=== PATIENT | male | born 1970 | race American Indian/Alaskan Native ===

== ENCOUNTER 2017-05-16 21:22 | Observation (INO) | payer SELFPAY ==
--- NOTE | 2017-05-16 22:02 | ED PDOC ---
Lower Extremity Pain/Injury Time Seen by Provider: 05/16/17 21:32 Chief Complaint (Nursing): Lower Extremity Problem/Injury Chief Complaint (Provider): Left Ankle Pain, Right Knee Pain History Per: Patient History/Exam Limitations: no limitations Onset/Duration Of Symptoms: Days (x 3) Current Symptoms Are (Timing): Still Present Severity: Severe Pain Scale Rating Of: 9 Additional Complaint(s): Britton is a 46 y/o male who presents to the ED complaining of left ankle and right knee pain. Patient states he twisted the left ankle on Tuesday trying to get up from a chair and has been using a cane ever since. Today he started developing right knee pain which he thought was from compensating while walking. He denies injury or trauma to either area. He took aspirin at 8am today. Denies dyspnea, fever, chest pain, rash, SOB, other joint pain, cough, nausea, vomiting, calf tenderness, abdominal pain, or recent prolonged immobility. PMD: None Past Medical History Reviewed: Historical Data, Nursing Documentation, Vital Signs Vital Signs: Last Vital Signs Temp 97.9 F 05/16/17 21:26 Pulse 89 05/16/17 21:26 Resp 18 05/16/17 21:26 BP 150/93 H 05/16/17 21:26 Pulse Ox 97 05/16/17 21:26 - Medical History PMH: Anemia - Surgical History Surgical History: No Surg Hx - Family History Family History: States: Unknown Family Hx - Social History Alcohol: None Drugs: Denies - Home Medications Home Medications: Ambulatory Orders Medication Instructions Recorded Colchicine 0.6 mg PO DAILY #30 tablet 05/18/17 - Allergies Allergies/Adverse Reactions: Allergies Allergy/AdvReac Type Severity Reaction Status Date / Time No Known Allergies Allergy Verified 05/16/17 21:25 Review of Systems ROS Statement: Except As Marked, All Systems Reviewed And Found Negative Constitutional: Negative for: Fever Cardiovascular: Negative for: Chest Pain, Palpitations Respiratory: Negative for: Cough, Shortness of Breath Gastrointestinal: Negative for: Nausea, Vomiting, Abdominal Pain Musculoskeletal: Positive for: Leg Pain (right knee), Foot Pain (left ankle) Physical Exam - Reviewed Nursing Documentation Reviewed: Yes Vital Signs Reviewed: Yes - Physical Exam Appears: Positive for: Well, Non-toxic, No Acute Distress Head Exam: Positive for: ATRAUMATIC, NORMOCEPHALIC Skin: Positive for: Normal Color, Warm, Dry Eye Exam: Positive for: EOMI, PERRL Neck: Positive for: Painless ROM, Supple Cardiovascular/Chest: Positive for: Regular Rate, Rhythm. Negative for: Murmur Respiratory: Positive for: Normal Breath Sounds. Negative for: Decreased Breath Sounds, Accessory Muscle Use, Respiratory Distress Extremity: Positive for: Other (Left Ankle: large effusion, diffuse tenderness, no ROM secondary to pain, sensation intact, no warmth, no erythema or ecchymosis ; Right Knee: moderate effusion, diffuse tenderness, decreased rom secondary to pain, positive warmth, no overlying skin changes, no erythema). Negative for: Pedal Edema, Calf Tenderness Neurologic/Psych: Positive for: Alert, Oriented. Negative for: Motor/Sensory Deficits, Gait (unable to ambulate in ED) - Laboratory Results Result Diagrams: 05/17/17 05:20 05/16/17 22:45 - ECG O2 Sat by Pulse Oximetry: 97 (RA) Pulse Ox Interpretation: Normal Medical Decision Making Medical Decision Making: Time: 21:56 Initial Impression: Left Ankle & Right Knee Injury Initial Plan: --XR Right Knee 3 Views --XR Left Ankle 3 Views --CMP --CBC --Toradol --ESR --Uric acid 2315 KNEE XR: (-) fracture (+) effusion ANKLE XR: (-) fracture (+) effusion Patient advised that official radiology read of XR is still pending and will notify the patient if there is any discrepancy within 24 hours. 00:00 Labs reviewed and discussed with patient. Pain slightly improved, however patient is unable to ambulate in ED secondary to intractable pain and joint effusions. Consult placed to hospitalist. 0115 Case discussed with hospitalist, Dr Marie, who is agreeable to admission to med/ surg for observation due to intractable pain, inability to ambulate. Further care and disposition per Dr Marie. Arrangements made for admission. Scribe Attestation: Documented by Adonis Yang, acting as a scribe for Joyce Sibley PA-C Provider Scribe Attestation: All medical record entries made by the Scribe were at my direction and personally dictated by me. I have reviewed the chart and agree that the record accurately reflects my personal performance of the history, physical exam, medical decision making, and the department course for this patient. I have also personally directed, reviewed, and agree with the discharge instructions and disposition. Disposition - Clinical Impression Clinical Impression: Effusion, left ankle, Effusion of right knee joint, Intractable pain - Patient ED Disposition Is Patient to be Admitted: Yes Comment: Dr Marie, hospitalist Doctor Will See Patient In The: ED Counseled Patient/Family Regarding: Diagnosis - Disposition Disposition Time: 01:15 Condition: FAIR - Pt Status Changed To: Hospital Disposition Of: IP to OP/OBS (Code 44) - POA Present On Arrival: None Results - Lab Results Lab Results: 05/16/17 05/16/17 05/16/17 23:49 23:38 22:45 WBC RBC Hgb Hct MCV MCH MCHC RDW Plt Count MPV Neut % (Auto) Lymph % (Auto) [place] % (Auto) Eos % (Auto) Baso % (Auto) Neut # (Auto) Lymph # (Auto) [place] # (Auto) Eos # (Auto) Baso # (Auto) ESR 44 H Sodium 141 Potassium 3.9 Chloride 99 Carbon Dioxide 27 Anion Gap 19 BUN 9 Creatinine 0.9 Est GFR ( Amer) > 60 Est GFR (Non-Af Amer) > 60 Random Glucose 125 H Uric Acid 8.7 H Calcium 9.2 Total Bilirubin 0.7 AST 31 ALT 35 Alkaline Phosphatase 96 Total Protein 8.0 Albumin 3.9 Globulin 4.0 H Albumin/Globulin Ratio 1.0 05/16/17 22:45 WBC 7.1 RBC 5.82 Hgb 13.2 Hct 41.5 MCV 71.2 L MCH 22.7 L MCHC 31.9 L RDW 14.4 Plt Count 280 MPV 8.1 Neut % (Auto) 75.0 Lymph % (Auto) 11.3 L [place] % (Auto) 9.6 Eos % (Auto) 3.7 Baso % (Auto) 0.4 Neut # (Auto) 5.3 Lymph # (Auto) 0.8 L [place] # (Auto) 0.7 Eos # (Auto) 0.3 Baso # (Auto) 0.0 ESR Sodium Potassium Chloride Carbon Dioxide Anion Gap BUN Creatinine Est GFR ( Amer) Est GFR (Non-Af Amer) Random Glucose Uric Acid Calcium Total Bilirubin AST ALT Alkaline Phosphatase Total Protein Albumin Globulin Albumin/Globulin Ratio
[2017-05-16 22:55] LABS: BASO % 0.4 % (0.0-2.0); EOS # 0.3 K/uL (0.0-0.7); EOS % 3.7 % (0.0-4.0); HEMOGLOBIN 13.2 g/dL (12.0-18.0); LYMPH # 0.8 K/uL (1.0-4.3); LYMPH % 11.3 % (20.0-40.0); MEAN CELL VOLUME 71.2 fl (80.0-94.0); MEAN CORPUSCULAR HEMOGLOBIN 22.7 pg (27.0-31.0); MEAN CORPUSCULAR HGB CONC 31.9 g/dL (33.0-37.0); MEAN PLATELET VOLUME 8.1 fl (7.2-11.7); MONO # 0.7 K/uL (0.0-0.8); MONO % 9.6 % (0.0-10.0); NEUT # 5.3 K/uL (1.8-7.0); NRBC % 0.6 % (0.0-0.0); RBC 5.82 Mil/uL (4.40-5.90); RED CELL DISTRIBUTION WIDTH 14.4 % (11.5-14.5); WHITE BLOOD COUNT 7.1 K/uL (4.8-10.8)
[2017-05-16 23:03] LABS: ALBUMIN 3.9 g/dL (3.5-5.0); ALT/SGPT 35 U/L (21-72); AST/SGOT 31 U/L (17-59); BLOOD UREA NITROGEN 9 mg/dl (9-20); CALCIUM 9.2 mg/dL (8.4-10.2); GFR AFRICAN-AMERICAN > 60; GFR NON-AFRICAN AMERICAN > 60
--- NOTE | 2017-05-17 00:49 | RAD ---
EXAM: XR Left Ankle Complete, 3 or More Views CLINICAL HISTORY: 46 years old, male; Pain; Ankle; Left; Additional info: Swelling, pain TECHNIQUE: Frontal, lateral and oblique views of the left ankle. COMPARISON: No relevant prior studies available. FINDINGS: Limitations: Suboptimal positioning. Bones/joints: No displaced fracture. Mild ossification along tibiofibular syndesmosis. Small exostosis along dorsum of talus. No dislocation. Probable joint effusion. Soft tissues: Soft tissue swelling. IMPRESSION: 1. No displaced fracture. 2. If pain persists, consider MRI to evaluate for occult fracture/internal arrangement. 3. Incidental/non-acute findings are described above.
--- NOTE | 2017-05-17 00:50 | RAD ---
EXAM: XR Right Knee, 3 views CLINICAL HISTORY: 46 years old, male; Pain; Knee; Right; Additional info: Swelling, pain TECHNIQUE: Three views of the right knee. COMPARISON: No relevant prior studies available. FINDINGS: Limitations: Suboptimal positioning. Bones/joints: No acute fracture. No dislocation. Joint effusion. Soft tissues: Unremarkable. IMPRESSION: 1. No fracture. 2. If pain persists, suggest MRI to evaluate for occult fracture/internal arrangement. 3. Incidental/non-acute findings are described above.
--- NOTE | 2017-05-17 01:19 | CP.PCM.HP ---
History of Present Illness - History of Present Illness History of Present Illness: PMD: None Chief complaint: Left ankle and right knee painful swelling The patient was seen and examined in the ED HPI: 46 years old male with Hx of Anemia and a Sprain to the left ankle with swelling 20 years ago. He had been asymptomatic until 3 days ago when he twisted his left ankle which began to have a painful swelling. The right knee began it's painful swelling later without being traumatized. The pain and swelling has progressively becoming worse. Initially he used a cane but now he cannot ambulate because of the severity of the pain. Aspirin failed to relieve the pain. No fever, SOB, Chest nor Abdomial, no dysuria nor urinary frequency. PMH: Anemia PSH: Denies SH: No illegal drug use; Occasional Alcohol; Former Smoker; live with family; work in Maintenance FH: significant for Breast Cancer and HTN Allergies: NKDA Medication: ASA Present on Admission - Present on Admission Any Indicators Present on Admission: No History of DVT/PE: No History of Uncontrolled Diabetes: No Urinary Catheter: No Decubitus Ulcer Present: No Review of Systems - Constitutional Constitutional: absent: Anorexia, Chills, Fatigue, Fever, Headache, Weakness - EENT Eyes: Requires Corrective Lenses. absent: Decreased Night Vision, Itchy Eyes, Photophobia Ears: absent: Decreased Hearing, Ear Discharge, Ear Pain, Tinnitus Nose/Mouth/Throat: absent: Epistaxis, Nasal Congestion, Sinus Pain, Sinus Pressure - Cardiovascular Cardiovascular: absent: Chest Pain, Dyspnea, Edema - Respiratory Respiratory: absent: Cough, Dyspnea, Hemoptysis, Wheezing, Snoring - Gastrointestinal Gastrointestinal: absent: Bloating, Constipation, Diarrhea, Nausea, Vomiting - Genitourinary Genitourinary: absent: Dysuria, Flank Pain, Hematuria, Urinary Frequency - Musculoskeletal Musculoskeletal: Arthralgias, Joint Swelling Additional comments: Painful swelling to the left ankle and the right knee. - Integumentary Integumentary: Swelling. absent: Pruritus, Rash, Skin Ulcer, Sores, Striae - Neurological Neurological: absent: Confusion, Dizziness, Focal Weakness, Headaches - Psychiatric Psychiatric: absent: Anxiety, Depression, Homicidal Ideation - Endocrine Endocrine: absent: Palpitations, Polydipsia, Polyphagia, Polyuria - Hematologic/Lymphatic Hematologic: absent: Easy Bleeding, Easy Bruising Past Patient History - Infectious Disease Hx of Infectious Diseases: None - Past Medical History & Family History Past Medical History?: Yes - Past Social History Smoking Status: Former Smoker - CARDIAC Hx Cardiac Disorders: No - PULMONARY Hx Respiratory Disorders: No - NEUROLOGICAL Hx Neurological Disorder: No - HEENT Hx HEENT Problems: No - RENAL Hx Chronic Kidney Disease: No - ENDOCRINE/METABOLIC Hx Endocrine Disorders: No - HEMATOLOGICAL/ONCOLOGICAL Hx Anemia: Yes - INTEGUMENTARY Hx Dermatological Problems: No - MUSCULOSKELETAL/RHEUMATOLOGICAL Hx Musculoskeletal Disorders: No Hx Back Pain: No - GASTROINTESTINAL Hx Gastrointestinal Disorders: No - GENITOURINARY/GYNECOLOGICAL Hx Genitourinary Disorders: No - PSYCHIATRIC Hx Substance Use: No - SURGICAL HISTORY Hx Surgeries: No - ANESTHESIA Hx Anesthesia: No Meds Allergies/Adverse Reactions: Allergies Allergy/AdvReac Type Severity Reaction Status Date / Time No Known Allergies Allergy Verified 05/16/17 21:25 Physical Exam - Constitutional Appears: No Acute Distress - Head Exam Head Exam: ATRAUMATIC, NORMAL INSPECTION - Eye Exam Eye Exam: EOMI, Normal appearance Pupil Exam: NORMAL ACCOMODATION, PERRL - Neck Exam Neck exam: Positive for: Full Rom, Normal Inspection. Negative for: Lymphadenopathy, Tenderness - Respiratory Exam Respiratory Exam: Clear to Auscultation Bilateral. absent: Rales, Rhonchi, Wheezes - Cardiovascular Exam Cardiovascular Exam: REGULAR RHYTHM, RRR, +S1, +S2. absent: Gallop, JVD - GI/Abdominal Exam GI & Abdominal Exam: Normal Bowel Sounds, Soft. absent: Mass, Organomegaly, Tenderness - Rectal Exam Rectal Exam: Deferred - Extremities Exam Additional comments: Left foot, ankle and the distal left leg swollen, warm to the touch and tender. Pedal dorsalis present. Right knee swollen, tender and warm to touch.. - Back Exam Back exam: NORMAL INSPECTION. absent: CVA tenderness (L), CVA tenderness (R) - Neurological Exam Neurological exam: Alert, CN II-XII Intact, Oriented x3 - Psychiatric Exam Psychiatric exam: Normal Affect, Normal Mood - Skin Skin Exam: Dry, Intact, Normal Color, Warm Results - Vital Signs Recent Vital Signs: Last Vital Signs Temp 97.9 F 05/16/17 21:26 Pulse 89 05/16/17 21:26 Resp 18 05/16/17 21:26 BP 150/93 H 05/16/17 21:26 Pulse Ox 97 05/17/17 01:10 - Labs Result Diagrams: 05/16/17 22:45 05/16/17 22:45 Labs: Laboratory Results - last 24 hr 05/16/17 05/16/17 05/16/17 22:45 22:45 23:38 WBC 7.1 RBC 5.82 Hgb 13.2 Hct 41.5 MCV 71.2 L MCH 22.7 L MCHC 31.9 L RDW 14.4 Plt Count 280 MPV 8.1 Neut % (Auto) 75.0 Lymph % (Auto) 11.3 L [place] % (Auto) 9.6 Eos % (Auto) 3.7 Baso % (Auto) 0.4 Neut # (Auto) 5.3 Lymph # (Auto) 0.8 L [place] # (Auto) 0.7 Eos # (Auto) 0.3 Baso # (Auto) 0.0 ESR Sodium 141 Potassium 3.9 Chloride 99 Carbon Dioxide 27 Anion Gap 19 BUN 9 Creatinine 0.9 Est GFR ( Amer) > 60 Est GFR (Non-Af Amer) > 60 Random Glucose 125 H Uric Acid 8.7 H Calcium 9.2 Total Bilirubin 0.7 AST 31 ALT 35 Alkaline Phosphatase 96 Total Protein 8.0 Albumin 3.9 Globulin 4.0 H Albumin/Globulin Ratio 1.0 05/16/17 23:49 WBC RBC Hgb Hct MCV MCH MCHC RDW Plt Count MPV Neut % (Auto) Lymph % (Auto) [place] % (Auto) Eos % (Auto) Baso % (Auto) Neut # (Auto) Lymph # (Auto) [place] # (Auto) Eos # (Auto) Baso # (Auto) ESR 44 H Sodium Potassium Chloride Carbon Dioxide Anion Gap BUN Creatinine Est GFR ( Amer) Est GFR (Non-Af Amer) Random Glucose Uric Acid Calcium Total Bilirubin AST ALT Alkaline Phosphatase Total Protein Albumin Globulin Albumin/Globulin Ratio - Imaging and Cardiology Xray Right Knee Status: Image reviewed by me Additional comment: EXAM: Right Knee FINDINGS: Limitations: Suboptimal positioning. Bones/joints: No acute fracture. No dislocation. Joint effusion. Soft tissues: Unremarkable. IMPRESSION: 1. No fracture. 2. If pain persists, suggest MRI to evaluate for occult fracture/internal arrangement. 3. Incidental/non-acute findings are described above. X Ray Left ankle Additional comment: EXAM: XR Left Ankle Complete, 3 or More Views FINDINGS: Limitations: Suboptimal positioning. Bones/joints: No displaced fracture. Mild ossification along tibiofibular syndesmosis. Small exostosis along dorsum of talus. No dislocation. Probable joint effusion. Soft tissues: Soft tissue swelling. IMPRESSION: 1. No displaced fracture. 2. If pain persists, consider MRI to evaluate for occult fracture/internal arrangement. 3. Incidental/non-acute findings are described above. Assessment & Plan - Assessment and Plan (Free Text) Assessment: #. Painful Inflammation of left ankle and the right knee Plan: 46 years old male comes 3 days after twisting his left ankle developing painful swelling. The right knee began having painful swelling two days later without being traumatized. No fever, diarrhea nor urinary symptoms. #. Painful Inflammation of left ankle and the right knee. R/O inflammatory verses infectious arthritis. Gouty Arthritis is most likely - No inhouse Rheumatology - X ray of left ankle and right knee negative for Fx. may need MRI if not resolving - Consult Dr Lowery Podiatry for possibly Arthrocentesis - Blood Culture - Urine culture - ABRAN - ESR - CRP - HIV - Lyme antibody - Urethral Swab post urination - Colchicine - Toradol for pain - Physical Therapy - Date & Time Date: 05/17/17 Time: 01:12
[2017-05-17] MEDS ORDERED: COLCHICINE 0.6 MG CAPSULE PO STA (02:16)
[2017-05-17 06:29] LABS: BASO % 0.3 % (0.0-2.0); EOS # 0.3 K/uL (0.0-0.7); EOS % 4.2 % (0.0-4.0); LYMPH # 0.8 K/uL (1.0-4.3); LYMPH % 12.7 % (20.0-40.0); MEAN CELL VOLUME 70.5 fl (80.0-94.0); MEAN CORPUSCULAR HEMOGLOBIN 22.6 pg (27.0-31.0); MEAN PLATELET VOLUME 8.2 fl (7.2-11.7); MONO # 0.8 K/uL (0.0-0.8); MONO % 12.2 % (0.0-10.0); NEUT # 4.5 K/uL (1.8-7.0); NEUT % 70.6 % (50.0-75.0); NRBC % 0.2 % (0.0-0.0); RBC 5.31 Mil/uL (4.40-5.90); RED CELL DISTRIBUTION WIDTH 14.3 % (11.5-14.5); WHITE BLOOD COUNT 6.4 K/uL (4.8-10.8)
--- NOTE | 2017-05-17 08:53 | CP.PCM.CON ---
History of Present Illness - History of Present Illness History of Present Illness: Patient is a 46 y/o male who complains of left ankle and right knee pain. His left ankle pain began following a slip and fall at home 4 days ago resulting in a twisting injury to his ankle. His pain is dull and aching in quality and rated a 6-8/10 on the pain scale. The pain is located medially and is associated with significant swelling. The pain is worsened with any weightbearing activities and is alleviated with rest and non-weightbearing. He reports an similar old left ankle injury which occurred 20 years ago. His right knee pain began 3 days ago without any instance of trauma. He believes that it developed while using crutches incorrectly while taking weight off his left ankle from his injury the day before. The pain is located predominantly superior and at the lateral aspect of his knee. It is dull and aching in quality and rated a 5-7/10. It is worsened with weight bearing activities and alleviated with rest. He denies any injury, trauma or issues in the past with his knee. He has tried OTC NSAID's and ice without any relief. He presented to the emergency room for worsening left ankle and right knee pain severe to the point where he is unable to weight bear at both lower extremeties. He denies any CP/SOB/N/V/D/GATICA/dizziness/melena/dysuria. Review of Systems - Review of Systems All systems: reviewed and no additional remarkable complaints except Review of Systems: as per HPI Past Patient History - Infectious Disease Hx of Infectious Diseases: None - Past Medical History & Family History Past Medical History?: Yes Pertinent Family History: Mother: Breast CA - Past Social History Smoking Status: Never Smoked Chewing Tobacco Use: No Cigar Use: No Alcohol: Occasional Drugs: Denies - CARDIAC Hx Cardiac Disorders: No - PULMONARY Hx Respiratory Disorders: No - NEUROLOGICAL Hx Neurological Disorder: No - HEENT Hx HEENT Problems: No - RENAL Hx Chronic Kidney Disease: No - ENDOCRINE/METABOLIC Hx Endocrine Disorders: No - HEMATOLOGICAL/ONCOLOGICAL Hx Anemia: Yes - INTEGUMENTARY Hx Dermatological Problems: No - MUSCULOSKELETAL/RHEUMATOLOGICAL Hx Musculoskeletal Disorders: No Hx Back Pain: No - GASTROINTESTINAL Hx Gastrointestinal Disorders: No - GENITOURINARY/GYNECOLOGICAL Hx Genitourinary Disorders: No - PSYCHIATRIC Hx Substance Use: No - SURGICAL HISTORY Hx Surgeries: No - ANESTHESIA Hx Anesthesia: No Meds Allergies/Adverse Reactions: Allergies Allergy/AdvReac Type Severity Reaction Status Date / Time No Known Allergies Allergy Verified 05/16/17 21:25 - Medications Medications: Current Medications Colchicine (Colchicine) 0.6 mg PO BID ANA Heparin Sodium (Porcine) (Heparin) 5,000 units SC Q12 ANA PRN Reason: Protocol Ketorolac Tromethamine (Toradol) 15 mg IVP Q6 PRN PRN Reason: Pain, moderate (4-7) Ketorolac Tromethamine (Toradol) 30 mg IVP Q6 PRN PRN Reason: Pain, severe (8-10) Last Admin: 05/17/17 02:50 Dose: 30 mg Physical Exam - Constitutional Appears: No Acute Distress - Head Exam Head Exam: ATRAUMATIC, NORMAL INSPECTION, NORMOCEPHALIC - Eye Exam Eye Exam: Normal appearance, PERRL - ENT Exam ENT Exam: Mucous Membranes Moist, Normal Exam - Respiratory Exam Respiratory Exam: NORMAL BREATHING PATTERN - Expanded Lower Extremities Exam Left Ankle exam: swelling (moderate to severe medially), tenderness (medially) Neuro vacular tendon exam: significant pain with passive ROM of distal joint Gait: unable to bear weight Right Knee exam: effusion (moderate), tenderness (diffuse laterally). absent: full ROM (ROM 5-90 deg) Neuro vacular tendon exam: significant pain with passive ROM of distal joint Gait: unable to bear weight - Neurological Exam Neurological exam: Alert, Oriented x3 - Expanded Neurological Exam Expanded Sensory exam: Lower Extremity Light Touch: Normal Neuro motor strength exam: Left Lower Extremity: 4 (TA/gastroc 2nd to pain), Right Lower Extremity: 4 (quad/HS 2nd to pain) - Psychiatric Exam Psychiatric exam: Normal Affect, Normal Mood - Skin Skin Exam: Intact, Normal Color, Warm Results - Vital Signs Recent Vital Signs: Last Vital Signs Temp 98.2 F 05/17/17 08:06 Pulse 61 05/17/17 08:06 Resp 18 05/17/17 08:06 BP 98/68 L 05/17/17 08:06 Pulse Ox 96 05/17/17 08:06 - Labs Result Diagrams: 05/17/17 05:20 05/16/17 22:45 Labs: Laboratory Results - last 24 hr 05/16/17 05/16/17 05/16/17 22:45 22:45 23:38 WBC 7.1 RBC 5.82 Hgb 13.2 Hct 41.5 MCV 71.2 L MCH 22.7 L MCHC 31.9 L RDW 14.4 Plt Count 280 MPV 8.1 Neut % (Auto) 75.0 Lymph % (Auto) 11.3 L [place] % (Auto) 9.6 Eos % (Auto) 3.7 Baso % (Auto) 0.4 Neut # (Auto) 5.3 Lymph # (Auto) 0.8 L [place] # (Auto) 0.7 Eos # (Auto) 0.3 Baso # (Auto) 0.0 ESR Sodium 141 Potassium 3.9 Chloride 99 Carbon Dioxide 27 Anion Gap 19 BUN 9 Creatinine 0.9 Est GFR ( Amer) > 60 Est GFR (Non-Af Amer) > 60 Random Glucose 125 H Uric Acid 8.7 H Calcium 9.2 Total Bilirubin 0.7 AST 31 ALT 35 Alkaline Phosphatase 96 Total Protein 8.0 Albumin 3.9 Globulin 4.0 H Albumin/Globulin Ratio 1.0 05/16/17 05/17/17 23:49 05:20 WBC 6.4 RBC 5.31 Hgb 12.0 Hct 37.4 MCV 70.5 L MCH 22.6 L MCHC 32.0 L RDW 14.3 Plt Count 251 MPV 8.2 Neut % (Auto) 70.6 Lymph % (Auto) 12.7 L [place] % (Auto) 12.2 H Eos % (Auto) 4.2 H Baso % (Auto) 0.3 Neut # (Auto) 4.5 Lymph # (Auto) 0.8 L [place] # (Auto) 0.8 Eos # (Auto) 0.3 Baso # (Auto) 0.0 ESR 44 H Sodium Potassium Chloride Carbon Dioxide Anion Gap BUN Creatinine Est GFR ( Amer) Est GFR (Non-Af Amer) Random Glucose Uric Acid Calcium Total Bilirubin AST ALT Alkaline Phosphatase Total Protein Albumin Globulin Albumin/Globulin Ratio - Imaging and Cardiology Xray Right Knee Status: Image reviewed by me, Report reviewed by me Additional comment: Patient Name: ADELAIDA JURADO Pt. Address: [address] [place] [address] Rec #: [id number] [place] [address]: Toñito RENDON, Joyce Farooq Pt Order Location: [facility] : 1970 Male Age: 46 Order #: [id number] Reason for exam: swelling, pain Radiology KNEE 3 VIEWS RT Exam Date: 05/16/17 This imaging exam was performed at [facility] (Formerly [facility]) EXAM: XR Right Knee, 3 views CLINICAL HISTORY: 46 years old, male; Pain; Knee; Right; Additional info: Swelling, pain TECHNIQUE: Three views of the right knee. COMPARISON: No relevant prior studies available. FINDINGS: Limitations: Suboptimal positioning. Bones/joints: No acute fracture. No dislocation. Joint effusion. Soft tissues: Unremarkable. IMPRESSION: 1. No fracture. 2. If pain persists, suggest MRI to evaluate for occult fracture/internal arrangement. 3. Incidental/non-acute findings are described above. Dictated By: Ashvin Gonzalez MD Dictated Date/Time: 05/17/1749 Signed By: Ashvin Gonzalez MD Date Signed: 49 Transcribed By: VRAD Transcribe Date/Time : 05/17/1749 ACYP02/VRD ANKLE LEFT 3 VIEWS ROUTINE Exam Date: 05/16/17 This imaging exam was performed at [facility] (Former[facility]) EXAM: XR Left Ankle Complete, 3 or More Views CLINICAL HISTORY: 46 years old, male; Pain; Ankle; Left; Additional info: Swelling, pain TECHNIQUE: Frontal, lateral and oblique views of the left ankle. COMPARISON: No relevant prior studies available. FINDINGS: Limitations: Suboptimal positioning. Bones/joints: No displaced fracture. Mild ossification along tibiofibular syndesmosis. Small exostosis along dorsum of talus. No dislocation. Probable joint effusion. Soft tissues: Soft tissue swelling. IMPRESSION: 1. No displaced fracture. 2. If pain persists, consider MRI to evaluate for occult fracture/internal arrangement. 3. Incidental/non-acute findings are described above. Dictated By: Ashvin Gonzalez MD Dictated Date/Time: 05/17/1748 Signed By: Ashvin Gonzalez MD Date Signed: 48 Transcribed By: VRAD Transcribe Date/Time : 05/17/1748 ACYP02/VRD Assessment & Plan (1) Sprain of deltoid ligament of left ankle Assessment and Plan: -MRI w/o contrast Left ankle -air cast brace to L ankle -NWB until results of MRI -NSAID's, ice and elevation -will order PT once MRI complete -case and plan d/w Dr. Sierra in agreement Status: Acute (2) Effusion of right knee joint Assessment and Plan: -MRI right knee to evaluate for meniscal tear vs OA -NSAID's, ice and elevation -PT/OT WBAT with crutches (proper heel to toe gait) -case and plan d/w Dr. Sierra in agreement Status: Acute - Date & Time Date: 05/17/17 Time: 08:30
[2017-05-17] MEDS ORDERED: COLCHICINE 0.6 MG CAPSULE PO SCH (09:00)
[2017-05-17 14:46] LABS: SQUAMOUS EPITHIAL 1 /hpf (0-5); URINE BACTERIA RARE (<OCC); URINE BILIRUBIN NEGATIVE (NEGATIVE); URINE BLOOD NEGATIVE (NEGATIVE); URINE CLARITY CLOUDY (Clear); URINE COLOR AMBER (YELLOW); URINE GLUCOSE (UA) NEG (Normal); URINE LEUKOCYTE ESTERASE NEG Leu/uL (Negative); URINE PROTEIN 30 mg/dL (NEGATIVE)
--- NOTE | 2017-05-17 16:38 | MRI ---
MRI right knee History: Knee pain. Comparison: None available. Technique: Multi-echo multiplanar sequences were performed through the right knee without the use of intravenous contrast. Findings: Thinning and attenuation with increased signal seen within the visualized anterior cruciate ligament suggestive for a moderate grade sprain with associated interstitial delamination and/or interstitial partial tearing. Posterior cruciate ligament is preserved. Medial meniscus is preserved. Globular increased signal seen within the anterior root and horn the lateral meniscus extending to the articular surface suggestive for a tear. Additional grade 2 intrasubstance degeneration in the posterior horn of the lateral meniscus. Moderate grade sprain of the medial collateral ligament. Thickening and fraying with increased signal at the proximal attachment of the fibular collateral ligament suggestive for high-grade strain and or partial tear. Thickening with increased signal within the distal attachment of the popliteus tendon suggestive for a high grade strain and or partial tear. Quadriceps tendon is preserved. Patellar tendon is preserved. Patellar cartilage is preserved. Prominent thickening and fraying with increased signal seen at the level of the medial and lateral patellar retinaculum suggestive for high grade strains and or partial tears. Mild to moderate cartilage thinning and loss involving the anterior to midportion of the medial compartment of the femorotibial joint space with signal change in the adjacent marrow of the anterior medial femoral condyle demonstrating decreased T1 signal and increased STIR signal suggestive for osteochondral change with possible subchondral cyst formation measuring up to 3 millimeters. Large suprapatellar joint effusion with associated synovial debris and hypertrophy. Small posterior Bakers cyst. Impression: 1. Large suprapatellar joint effusion with associated synovial debris and hypertrophy. 2. Thinning and attenuation with increased signal seen within the visualized anterior cruciate ligament suggestive for a moderate grade sprain with associated interstitial delamination and/or interstitial partial tearing. 3. Globular increased signal seen within the anterior root and horn the lateral meniscus extending to the articular surface suggestive for a tear. Additional grade 2 intrasubstance degeneration in the posterior horn of the lateral meniscus. 4. Moderate grade sprain of the medial collateral ligament. 5. Thickening and fraying with increased signal at the proximal attachment of the fibular collateral ligament suggestive for high-grade strain and or partial tear. 6. Thickening with increased signal within the distal attachment of the popliteus tendon suggestive for a high grade strain and or partial tear. 7. Prominent thickening and fraying with increased signal seen at the level of the medial and lateral patellar retinaculum suggestive for high grade strains and or partial tears. 8. Mild to moderate cartilage thinning and loss involving the anterior to midportion of the medial compartment of the femorotibial joint space with signal change in the adjacent marrow of the anterior medial femoral condyle demonstrating decreased T1 signal and increased STIR signal suggestive for osteochondral change with possible subchondral cyst formation measuring up to 3 millimeters. 9. Small posterior Bakers cyst.
[2017-05-17 16:54] VITALS: RESP 20
--- NOTE | 2017-05-17 17:01 | MRI ---
MRI left ankle History: Ankle sprain. Comparison: None available. Technique: Multi-echo multiplanar sequences were performed through the left ankle without the use of intravenous contrast. 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 Near complete obliteration of the sinus tarsi given the resultant coalition. Severe probable resultant degenerative changes in the midfoot with subchondral articular surface flattening and collapse, possibly secondary to osteonecrosis and or severe degenerative change of the distal articular surface of the navicular bone at its articulation with the cuneiform bones with associated reactive edema both at the posterior aspect of the middle and lateral cuneiform bones as well as the navicular bone. Posteriorly there is a large hook like osteophytosis with reactive edema seen at the talonavicular joint space. Superimposed acute subchondral osseous injuries at the osteophyte cannot be excluded. Signal changes seen within the anterior aspect of the calcaneus at its articulation the cuboid with decreased T1 signal and increased STIR signal suggestive for osteochondral change and or bone bruising. Mild subchondral cyst formation within the distal fibula. Degenerative changes with osteochondral change seen at the distal pole of the lateral cuneiform at its articulation with the adjacent metatarsal base. Additional possible osteochondral change at the level of the distal pole of the medial cuneiform bone at the articulation with the corresponding metatarsal base. Small ankle joint effusion. Achilles tendon is preserved. Thickening of the plantar fascia measuring up to 7 millimeters suggestive for a mild plantar fascitis. Moderate ankle joint effusion. Prominent reticulation and edema seen within the circumferential subcutaneous soft tissues most prominent at the dorsal aspect of the midfoot. Anterior extensor tendons are preserved. Moderate tenosynovitis of the posterior tibial tendon sheath with inframalleolar tendinopathy and/or partial tearing. Moderate loculated supramalleolar tenosynovitis of the flexor hallucis tendon sheath. Mild tenosynovitis of peroneal tendon sheaths. Anterior and posterior tibiofibular ligaments are preserved. Partial tearing and or moderate grade sprain of the anterior talofibular ligament as well as the posterior talofibular ligament. Lobulated fluid intensity signal foci measuring 2.6 centimeters at the lateral aspect of the midfoot which may represent prominent tortuous vessels versus synovial cyst/ ganglia formation versus additional etiology. Clinical correlation. Fraying with increased signal of the deep fibers of the deltoid ligament suggestive for partial tearing and or high grade sprain. Fraying with increased signal seen at the level the Lisfranc ligament suggestive for moderate grade sprain and or partial tear. Clinical correlation. Impression: 1. 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 Near complete obliteration of the sinus tarsi given the resultant coalition. Severe probable resultant degenerative changes in the midfoot with subchondral articular surface flattening and collapse, possibly secondary to osteonecrosis and or severe degenerative change of the distal articular surface of the navicular bone at its articulation with the cuneiform bones with associated reactive edema both at the posterior aspect of the middle and lateral cuneiform bones as well as the navicular bone. Posteriorly there is a large hook like osteophytosis with reactive edema seen at the talonavicular joint space. Superimposed acute subchondral osseous injuries at the osteophyte cannot be excluded. 2. Signal changes seen within the anterior aspect of the calcaneus at its articulation the cuboid with decreased T1 signal and increased STIR signal suggestive for osteochondral change and or bone bruising. 3. Mild subchondral cyst formation within the distal fibula. 4. Degenerative changes with osteochondral change seen at the distal pole of the lateral cuneiform at its articulation with the adjacent metatarsal base. Additional possible osteochondral change at the level of the distal pole of the medial cuneiform bone at the articulation with the corresponding metatarsal base. 5. Small ankle joint effusion. 6. Thickening of the plantar fascia measuring up to 7 millimeters suggestive for a mild plantar fascitis. 7. Moderate ankle joint effusion. 8. Prominent reticulation and edema seen within the circumferential subcutaneous soft tissues most prominent at the dorsal aspect of the midfoot. 9. Moderate tenosynovitis of the posterior tibial tendon sheath with inframalleolar tendinopathy and/or partial tearing. Moderate loculated supramalleolar tenosynovitis of the flexor hallucis tendon sheath. 10. Mild tenosynovitis of peroneal tendon sheaths. 11. Partial tearing and or moderate grade sprain of the anterior talofibular ligament as well as the posterior talofibular ligament. 12. Lobulated fluid intensity signal foci measuring 2.6 centimeters at the lateral aspect of the midfoot which may represent prominent tortuous vessels versus synovial cyst/ ganglia formation versus additional etiology. Clinical correlation. 13. Fraying with increased signal of the deep fibers of the deltoid ligament suggestive for partial tearing and or high grade sprain. 14. Fraying with increased signal seen at the level the Lisfranc ligament suggestive for moderate grade sprain and or partial tear. Clinical correlation.
--- NOTE | 2017-05-17 18:35 | CP.PCM.PN ---
Subjective - Date & Time of Evaluation Date of Evaluation: 05/17/17 Time of Evaluation: 17:00 - Subjective Subjective: Patient seen and examined. Still complaining of pain on right knee and left ankle. Denied injury or trauma on the left knee. Objective - Vital Signs/Intake and Output Vital Signs (last 24 hours): Temp Pulse Resp BP Pulse Ox 98.4 F 63 20 116/64 98 05/17/17 16:54 05/17/17 16:54 05/17/17 16:54 05/17/17 16:54 05/17/17 16:54 - Medications Medications: Current Medications Colchicine (Colocrys) 0.6 mg PO BID [facility] Last Admin: 05/17/17 16:58 Dose: 0.6 mg Heparin Sodium (Porcine) (Heparin) 5,000 units SC Q12 ANA PRN Reason: Protocol Last Admin: 05/17/17 09:22 Dose: 5,000 units Ketorolac Tromethamine (Toradol) 15 mg IVP Q6 PRN PRN Reason: Pain, moderate (4-7) Ketorolac Tromethamine (Toradol) 30 mg IVP Q6 PRN PRN Reason: Pain, severe (8-10) Last Admin: 05/17/17 02:50 Dose: 30 mg - Labs Labs: 05/17/17 05:20 05/16/17 22:45 - Constitutional Appears: No Acute Distress - Head Exam Head Exam: ATRAUMATIC - Eye Exam Eye Exam: absent: Scleral icterus - ENT Exam ENT Exam: Mucous Membranes Moist - Neck Exam Neck Exam: absent: Meningismus - Respiratory Exam Respiratory Exam: absent: Rales, Rhonchi, Wheezes, Respiratory Distress - Cardiovascular Exam Cardiovascular Exam: REGULAR RHYTHM, +S1, +S2 - GI/Abdominal Exam GI & Abdominal Exam: Soft. absent: Tenderness - Rectal Exam Rectal Exam: Deferred - Extremities Exam Extremities Exam: Joint Swelling (swelling on right knee and left ankle). absent: Full ROM (limted ROM on right knee secondary to pain and swelling) - Back Exam Back Exam: absent: tenderness - Neurological Exam Neurological Exam: Alert, Oriented x3 - Psychiatric Exam Psychiatric exam: Normal Affect - Skin Skin Exam: Dry, Intact Assessment and Plan - Assessment and Plan (Free Text) Assessment: 46 yo male with no significant PMH twisted left ankle causing pain and swelling but denied injuring right knee which spontaneously became swollen, painful and tender as well. 1. Multiple Torn Ligament, Right Knee patient denied trauma or injury on the knee MRI of the knee: large suprapatellar joint effusion, moderate grade sprain or partial tearing of anterior cruciate ligament, tear of lateral meniscus, fibular collateral ligament strain or partial tear, popliteus tendon high grade strain or partial tear, medial and lateral patellar retinaculum high grade strain or partial tear orthopedic consult with Dr Sierra PT/OT consult pain management no weight bearing 2. Left Ankle Sprain podiatry consult pain management
[2017-05-18 00:30] VITALS: TEMP 98.1
[2017-05-18 07:48] VITALS: BP 123/76; PULSE 68
--- NOTE | 2017-05-18 08:23 | CP.PCM.PN ---
Subjective - Date & Time of Evaluation Date of Evaluation: 05/18/17 Time of Evaluation: 08:23 - Subjective Subjective: Patient seen and examined OOB ambulating with walker. Pain and swelling is much improved since yesterday. No new complaints. Objective - Vital Signs/Intake and Output Vital Signs (last 24 hours): Temp Pulse Resp BP Pulse Ox 98.1 F 68 20 123/76 98 05/18/17 07:46 05/18/17 07:46 05/18/17 07:46 05/18/17 07:46 05/18/17 07:46 - Medications Medications: Current Medications Colchicine (Colocrys) 0.6 mg PO BID [facility] Last Admin: 05/17/17 16:58 Dose: 0.6 mg Heparin Sodium (Porcine) (Heparin) 5,000 units SC Q12 ANA PRN Reason: Protocol Last Admin: 05/17/17 20:45 Dose: 5,000 units Ketorolac Tromethamine (Toradol) 15 mg IVP Q6 PRN PRN Reason: Pain, moderate (4-7) Ketorolac Tromethamine (Toradol) 30 mg IVP Q6 PRN PRN Reason: Pain, severe (8-10) Last Admin: 05/17/17 02:50 Dose: 30 mg - Labs Labs: 05/17/17 05:20 05/16/17 22:45 - Extremities Exam Additional comments: L ankle: improved swelling medially, tenderness medially, ROM: 10 deg DF, 10 def PF, 5 deg ER, 0 deg IR, sensation intact SP/DP/TN, motor intact EHL/FHL, pedal pulses intact R knee: Mod swelling and effusion improved, tenderness laterally, ROM 0-100, sensation intact SP/DP/TN, motor intact EHL/FHL/TA/G/Q/HS, pedal pulse intact, comp soft/NT b/l Assessment and Plan (1) Sprain of deltoid ligament of left ankle Assessment & Plan: Patient is a 46 y/o male with an acute left ankle deltoid ligament sprain. -continue air cast 4-6 weeks -WBAT LLE -MRI report and images review revealing medial ligament sprain in correlation to exam, there are degenerative changes as well consistent with general ankle OA -ice, elevate and cont. NSAID's -clear to d/c home from ortho s/p with outpt f/u -case and plan discussed with Dr. Sierra in agreement Status: Acute (2) Effusion of right knee joint Status: Acute (3) Knee osteoarthritis Assessment & Plan: Patient's MRI report and images were reviewed revealing degenerative changes consistent with medial compartment OA and degenerative lateral meniscus tearing. -continue ice, elevation, NSAID's -PT/OT WBAT, strength training -f/u on outpt basis -plan d/w Dr. Sierra in agreement Status: Acute
--- NOTE | 2017-05-18 11:17 | CP.PCM.DIS ---
Provider - Provider Date of Admission: 05/17/17 01:04 Attending physician: Yung Marie Consults: Dr Sierra Time Spent in preparation of Discharge (in minutes): 25 Diagnosis - Discharge Diagnosis (1) Effusion of right knee joint Status: Acute Comment: secondary to gouty arthritis. continue Colchicine 0.6mg PO daily. ambulate with rolling walker with weight bearing as tolerated. follow up on outpatient PT/OT (2) Effusion, left ankle Status: Acute Comment: continue air cast. weight bearing as tolerated. continue Motrin 400mg PO for pain q 4hrs prn. follow up with PT/OT Hospital Course - Lab Results Lab Results: Micro Results 05/17/17 Unknown Blood-Venous Blood Culture - Preliminary NO GROWTH AFTER 24 HOURS 05/17/17 Unknown Blood-Venous Blood Culture - Preliminary NO GROWTH AFTER 24 HOURS Most Recent Lab Values WBC 6.4 K/uL (4.8-10.8) 05/17/17 05:20 RBC 5.31 Mil/uL (4.40-5.90) 05/17/17 05:20 Hgb 12.0 g/dL (12.0-18.0) 05/17/17 05:20 Hct 37.4 % (35.0-51.0) 05/17/17 05:20 MCV 70.5 fl (80.0-94.0) L 05/17/17 05:20 MCH 22.6 pg (27.0-31.0) L 05/17/17 05:20 MCHC 32.0 g/dL (33.0-37.0) L 05/17/17 05:20 RDW 14.3 % (11.5-14.5) 05/17/17 05:20 Plt Count 251 K/uL (130-400) 05/17/17 05:20 MPV 8.2 fl (7.2-11.7) 05/17/17 05:20 Neut % (Auto) 70.6 % (50.0-75.0) 05/17/17 05:20 Lymph % (Auto) 12.7 % (20.0-40.0) L 05/17/17 05:20 [place] % (Auto) 12.2 % (0.0-10.0) H 05/17/17 05:20 Eos % (Auto) 4.2 % (0.0-4.0) H 05/17/17 05:20 Baso % (Auto) 0.3 % (0.0-2.0) 05/17/17 05:20 Neut # (Auto) 4.5 K/uL (1.8-7.0) 05/17/17 05:20 Lymph # (Auto) 0.8 K/uL (1.0-4.3) L 05/17/17 05:20 [place] # (Auto) 0.8 K/uL (0.0-0.8) 05/17/17 05:20 Eos # (Auto) 0.3 K/uL (0.0-0.7) 05/17/17 05:20 Baso # (Auto) 0.0 K/uL (0.0-0.2) 05/17/17 05:20 ESR 44 mm/hr (0-15) H 05/16/17 23:49 Sodium 141 mmol/l (132-148) 05/16/17 22:45 Potassium 3.9 MMOL/L (3.6-5.0) 05/16/17 22:45 Chloride 99 mmol/L (98-107) 05/16/17 22:45 Carbon Dioxide 27 mmol/L (22-30) 05/16/17 22:45 Anion Gap 19 (10-20) 05/16/17 22:45 BUN 9 mg/dl (9-20) 05/16/17 22:45 Creatinine 0.9 mg/dl (0.8-1.5) 05/16/17 22:45 Est GFR ( Amer) > 60 05/16/17 22:45 Est GFR (Non-Af Amer) > 60 05/16/17 22:45 Random Glucose 125 mg/dL (75-110) H 05/16/17 22:45 Uric Acid 8.7 mg/Dl (3.5-8.5) H 05/16/17 23:38 Calcium 9.2 mg/dL (8.4-10.2) 05/16/17 22:45 Total Bilirubin 0.7 mg/dl (0.2-1.3) 05/16/17 22:45 AST 31 U/L (17-59) 05/16/17 22:45 ALT 35 U/L (21-72) 05/16/17 22:45 Alkaline Phosphatase 96 U/L (38-126) 05/16/17 22:45 C-React Prot High Sens > 15.00 mg/L (1.00-3.00) H 05/17/17 05:20 Total Protein 8.0 G/DL (6.3-8.2) 05/16/17 22:45 Albumin 3.9 g/dL (3.5-5.0) 05/16/17 22:45 Globulin 4.0 gm/dL (2.2-3.9) H 05/16/17 22:45 Albumin/Globulin Ratio 1.0 (1.0-2.1) 05/16/17 22:45 Urine Color Mely (YELLOW) 05/17/17 13:47 Urine Clarity Cloudy (Clear) 05/17/17 13:47 Urine pH 5.0 (5.0-8.0) 05/17/17 13:47 Ur Specific [place] 1.030 (1.003-1.030) 05/17/17 13:47 Urine Protein 30 mg/dL (NEGATIVE) 05/17/17 13:47 Urine Glucose (UA) Neg mg/dL (Normal) 05/17/17 13:47 Urine Ketones Negative mg/dL (NEGATIVE) 05/17/17 13:47 Urine Blood Negative (NEGATIVE) 05/17/17 13:47 Urine Nitrate Negative (NEGATIVE) 05/17/17 13:47 Urine Bilirubin Negative (NEGATIVE) 05/17/17 13:47 Urine Urobilinogen 2.0 mg/dL (0.2-1.0) 05/17/17 13:47 Ur Leukocyte Esterase Neg Mani/uL (Negative) 05/17/17 13:47 Urine RBC (Auto) 3 /hpf (0-3) 05/17/17 13:47 Urine Microscopic WBC 10 /hpf (0-5) H 05/17/17 13:47 Ur Squamous Epith Cells 1 /hpf (0-5) 05/17/17 13:47 Urine Bacteria Rare (<OCC) 05/17/17 13:47 HIV 1&2 Antibody Screen Negative (NEGATIVE) 05/17/17 05:20 - Hospital Course Hospital Course: 46 yo male with no significant PMH twisted left ankle causing pain and swelling but denied injury or trauma on right knee which became swollen, painful and tender as well. Work up showed elevated serum uric acid and imaging showed multiple partial ligamental tear. Patient was put on NSAID and Colchicine and had some improvement. He was also referred to orthopedist who recommended outpatient PT/OT as part of the treatment. Patient was discharged in stable condition. Discharge Exam - Head Exam Head Exam: ATRAUMATIC - Eye Exam Eye Exam: absent: Scleral icterus - ENT Exam ENT Exam: Mucous Membranes Moist - Respiratory Exam Respiratory Exam: absent: Rales, Rhonchi, Wheezes, Respiratory Distress - Cardiovascular Exam Cardiovascular Exam: REGULAR RHYTHM, +S1, +S2 - GI/Abdominal Exam GI & Abdominal Exam: Soft. absent: Tenderness - Rectal Exam Rectal Exam: Deferred - Extremities Exam Extremities exam: joint swelling (swelling on right knee and left ankle) - Neurological Exam Neurological exam: Alert, Oriented x3 - Psychiatric Exam Psychiatric exam: Normal Affect - Skin Skin Exam: Dry, Intact Discharge Plan - Discharge Medications Prescriptions: Colchicine 0.6 mg PO DAILY #30 tablet - Follow Up Plan Condition: FAIR Disposition: HOME/ ROUTINE Instructions: Ankle Sprain (DC), Knee Pain (DC) Additional Instructions: follow up with your primary MD 7-10 days outpatient physical therapy Referrals: [facility] [place] [Outside] Bony Sierra III, MD [Staff Provider] -
[2017-05-18 16:16] VITALS: O2SAT 97
[2017-05-19 20:16] LABS: LYME IGG NEGATIVE (NEGATIVE)
[2017-05-19 20:20] LABS: LYME IGM NEGATIVE (NEGATIVE)
== END 2017-05-18 13:39 | disposition home or self-care (01) ==
LOC: H.ER 21:22 → H.ERHOLD 05-17 01:04 → H.MEDSURG1 05-17 02:21
PROVIDERS: ADMIT Internal Medicine; ATTEND Internal Medicine
DX: M10.9 Gout, unspecified (principal); S93.422A Sprain of deltoid ligament of left ankle, initial encounter; M25.461 Effusion, right knee; W01.0XXA Fall on same level from slipping, tripping and stumbling without subsequent striking against object, initial encounter; Y92.009 Unspecified place in unspecified non-institutional (private) residence as the place of occurrence of the external cause; M25.472 Effusion, left ankle; S83.91XA Sprain of unspecified site of right knee, initial encounter; M17.9 Osteoarthritis of knee, unspecified
CPT/HCPCS: 36415; 73562; 73610; 73721; 80053; 81003; 84550; 85025; 85651; 86039; 86140; 86618; 86703; 87040; 87086; 96374; 97162; 99285; G0378; G8978; G8979; J1644; J1885

== ENCOUNTER 2017-05-31 16:20 | Emergency (ER) | payer SELFPAY ==
[2017-05-31 16:54] VITALS: BP 130/82; PULSE 70; TEMP 98.2; O2SAT 99
[2017-05-31 19:03] VITALS: RESP 16
--- NOTE | 2017-05-31 19:34 | ED PDOC ---
Lower Extremity Pain/Injury Time Seen by Provider: 05/31/17 16:58 Chief Complaint (Nursing): Lower Extremity Problem/Injury Chief Complaint (Provider): Right knee pain History Per: Patient History/Exam Limitations: no limitations Onset/Duration Of Symptoms: Days Current Symptoms Are (Timing): Still Present Additional Complaint(s): 46 year old male presents to the ED with a complaint of right knee pain. Patient states he was recently admitted into the hospital and once discharged he was given two weeks off work. Upon returning to work, patient states he still felt pain. 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 Patient requests a few days off work to rest knee. Denies trauma, injury, fever, and other joint pain. Past Medical History Reviewed: Historical Data, Nursing Documentation, Vital Signs Vital Signs: Last Vital Signs Temp 98.2 F 05/31/17 16:51 Pulse 70 05/31/17 16:51 Resp 16 05/31/17 18:23 BP 130/82 05/31/17 16:51 Pulse Ox 99 05/31/17 16:51 - Medical History PMH: Anemia Denies: Chronic Kidney Disease - Surgical History Surgical History: No Surg Hx - Family History Family History: States: Unknown Family Hx - Home Medications Home Medications: Ambulatory Orders Medication Instructions Recorded Colchicine 0.6 mg PO DAILY #30 tablet 05/18/17 - Allergies Allergies/Adverse Reactions: Allergies Allergy/AdvReac Type Severity Reaction Status Date / Time No Known Allergies Allergy Verified 05/16/17 21:25 Review of Systems ROS Statement: Except As Marked, All Systems Reviewed And Found Negative Constitutional: Negative for: Fever Physical Exam - Reviewed Vital Signs Reviewed: Yes - Physical Exam Appears: Positive for: Well, No Acute Distress Head Exam: Positive for: ATRAUMATIC, NORMAL INSPECTION, NORMOCEPHALIC Skin: Positive for: Normal Color, Warm, Dry Extremity: Positive for: Normal ROM, Capillary Refill (normal). Negative for: Tenderness, Deformity, Swelling Neurologic/Psych: Positive for: Alert, advanced manufacturing technician II-XII, Oriented (x3). Negative for : Motor/Sensory Deficits - ECG O2 Sat by Pulse Oximetry: 99 (RA) Pulse Ox Interpretation: Normal Medical Decision Making Medical Decision Making: Impression: Right knee pain Plan: Based on history and exam plan will be for discharge home with instructions to follow up with orthopedic physician as well as given three days off of work. Advised to follow up with orthopedist in 1-2 days without fail. Return to the emergency room at any time for any new or worsening symptoms. Patient states he fully agrees with and understands discharge instructions. States that he agrees with the plan and disposition. Verbalized and repeated discharge instructions and plan. I have given the patient opportunity to ask any additional questions. Scribe Attestation: Documented by Leah Hussein acting as a scribe for MAYLIN Cuadra Provider Attestation: All medical record entries made by the Scribe were at my direction and personally dictated by me. I have reviewed the chart and agree that the record accurately reflects my personal performance of the history, physical exam, medical decision making, and the department course for this patient. I have also personally directed, reviewed, and agree with the discharge instructions and disposition. Disposition - Clinical Impression Clinical Impression: Knee pain - Patient ED Disposition Is Patient to be Admitted: No Counseled Patient/Family Regarding: Diagnosis, Need For Followup - Disposition Disposition: Routine/Home Disposition Time: 17:00 Condition: STABLE Additional Instructions: Follow up with your orthopedist in 2-3 days without fail. Rest, ice and elevate your knee. Take aleeve over the counter as needed for pain, take with food. Instructions: Knee Pain Forms: [employer] (Danish), [facility] ED School/Work Excuse - PA / GREY PERCHER / Resident Statement MD/ has reviewed & agrees with the documentation as recorded.
== END 2017-05-31 18:23 | disposition home or self-care (01) ==
LOC: H.ER 16:20
DX: M25.561 Pain in right knee (principal)